=== PATIENT | male | born 1995 | race African-American/Black ===

== ENCOUNTER → 2020-09-17 | Outpatient (CLI) | payer OTHER ==
--- NOTE | 2020-09-17 14:27 | RADIOLOGY REPORT (SQ) ---
EXAM DESCRIPTION: L SPINE WHOLE IMAGES COMPLETED DATE/TIME: 09/17/2020 2:17 pm REASON FOR STUDY: LUMBAR RADICULOPATHY M54.16 RADICULOPATHY, LUMBAR REGION COMPARISON: None. NUMBER OF VIEWS: Five views including obliques. TECHNIQUE: AP, lateral, oblique, and sacral radiographic images acquired of the lumbar spine. LIMITATIONS: None. FINDINGS: MINERALIZATION: Normal. SEGMENTATION: Normal. No transitional anatomy. ALIGNMENT: Normal. VERTEBRAE: Maintained height. No fracture or worrisome bone lesion. DISCS: Preserved height. No significant osteophytes or end plate irregularity. POSTERIOR ELEMENTS: Pedicles and facets are intact. No pars defect or posterior arch defects. HARDWARE: None in the spine. PARASPINAL SOFT TISSUES: Normal. PELVIS: Intact as visualized. No fractures or worrisome bone lesions. SI joints intact. OTHER: No other significant finding. IMPRESSION: NORMAL 5 VIEW LUMBAR SPINE. TECHNICAL DOCUMENTATION: JOB ID: [id number] 2010 [employer]- All Rights Reserved Reading location - IP/workstation name: [email or web address]
== END ==
LOC: RAD 13:56
PROVIDERS: ATTEND Family Medicine
DX: M54.16 Radiculopathy, lumbar region (principal)
CPT/HCPCS: 72110

== ENCOUNTER 2020-10-19 17:53 | Emergency (ER) | payer OTHER ==
--- NOTE | 2020-10-19 18:26 | ER Document Report ---
ED Medical Screen (RME) - General Chief Complaint: Cough Stated Complaint: COUGH Time Seen by Provider: 10/19/20 18:25 Mode of Arrival: Ambulatory Information source: Patient Notes: 24-year-old male presented to ED with cough dry throat fever. Cough and lateral started yesterday fever started today. He states the sniffles started today. He states he does not know his been around anybody with Covid and he has not been tested. He will get flu strep Covid test as well as chest x-ray for his symptoms. We will treat with Tylenol at this time. I will get blood work blood cultures and give IV fluids. Patient is alert oriented respirations regular nonlabored speaking in full sentences. I have greeted and performed a rapid initial assessment of this patient. A comprehensive ED assessment and evaluation of the patient, analysis of test results and completion of medical decision making process will be conducted by an additional ED providers. Physical Exam - Vital signs Vitals: Temp Pulse Resp BP Pulse Ox 102.3 F H 85 20 112/57 L 97 10/18/20 18:02 10/18/20 18:02 10/18/20 18:02 10/18/20 18:02 10/18/20 18:02 Course - Vital Signs Vital signs: Temp Pulse Resp BP Pulse Ox 102.3 F H 85 20 112/57 L 97 10/18/20 18:02 10/18/20 18:02 10/18/20 18:02 10/18/20 18:02 10/18/20 18:02
[2020-10-19] MEDS ORDERED: IBUPROFEN 800 MG TABLET PO ONE (18:31)
--- NOTE | 2020-10-19 19:00 | RADIOLOGY REPORT (SQ) ---
EXAM DESCRIPTION: CHEST SINGLE VIEW IMAGES COMPLETED DATE/TIME: 10/19/2020 6:42 pm REASON FOR STUDY: cough fever COMPARISON: None. EXAM PARAMETERS: NUMBER OF VIEWS: One view. TECHNIQUE: Single frontal radiographic view of the chest acquired. RADIATION DOSE: NA LIMITATIONS: None. FINDINGS: LUNGS AND PLEURA: No opacities, masses or pneumothorax. No pleural effusion. MEDIASTINUM AND HILAR STRUCTURES: No masses. Contour normal. HEART AND VASCULAR STRUCTURES: Heart normal in size. Normal vasculature. BONES: No acute findings. HARDWARE: None in the chest. OTHER: No other significant finding. IMPRESSION: NO ACUTE RADIOGRAPHIC FINDING IN THE CHEST. TECHNICAL DOCUMENTATION: JOB ID: [id number] 2010 [employer]- All Rights Reserved Reading location - IP/workstation name: [email or web address]
[2020-10-19 21:01] LABS: ABSOLUTE LYMPHOCYTES (AUTO) 0.6 10^3/uL (0.5-4.7); ABSOLUTE MONOCYTES (AUTO) 0.6 10^3/uL (0.1-1.4); BASOPHILS % (AUTO) 0.3 % (0-2); EOSINOPHILS % (AUTO) 0.1 % (0-6); HEMATOCRIT 42.6 % (37.9-51.0); HEMOGLOBIN 14.3 g/dL (13.5-17.0); LYMPHOCYTES % (AUTO) 17.5 % (13-45); MEAN CORPUSCULAR HEMOGLOBIN 28.7 pg (27.0-33.4); MEAN CORPUSCULAR HGB CONC 33.7 g/dL (32.0-36.0); MEAN CORPUSCULAR VOLUME 85 fl (80-97); MONOCYTES % (AUTO) 19.8 % (3-13); PLATELET COUNT 196 10^3/uL (150-450); RED CELL DISTRIBUTION WIDTH 13.4 % (11.5-14.0); SEGMENTED NEUTROPHILS % (AUTO) 62.3 % (42-78); TOTAL CELLS COUNTED % (AUTO) 100 %; WHITE BLOOD COUNT 3.2 10^3/uL (4.0-10.5)
[2020-10-19 21:10] LABS: ALKALINE PHOSPHATASE 58 U/L (38-126); ANION GAP 7 (5-19); ASPARTATE AMINO TRANSFERASE 26 U/L (17-59); BLOOD UREA NITROGEN 11 mg/dL (7-20); CARBON DIOXIDE 25 mmol/L (22-30); CHLORIDE 102 mmol/L (98-107); GLUCOSE 79 mg/dL (75-110); POTASSIUM 3.6 mmol/L (3.6-5.0); TOTAL PROTEIN 7.4 g/dL (6.3-8.2)
[2020-10-19 21:18] LABS: A TYPE INFLUENZA AG NEGATIVE (NEGATIVE)
[2020-10-19 21:19] LABS: B INFLUENZA AG NEGATIVE (NEGATIVE)
--- NOTE | 2020-10-19 21:51 | ER Document Report ---
ED General - General Chief Complaint: Fever Stated Complaint: COUGH Time Seen by Provider: 10/19/20 18:25 Mode of Arrival: Ambulatory Notes: 24-year-old male no significant past medical history presents with 2 days of f ever and cough. Patient says he came to the emergency department because he had a fever of 106 degrees at home and his was concerned and wanted him to get checked out. Patient took Tylenol after that and the fever came down partially and then was given ibuprofen in the ED which is greatly improved his symptoms further. Patient endorses some nasal congestion, one loose nonbloody stool, some throat soreness and a dry cough. Patient denies any shortness of breath, neck pain or stiffness, headache, vomiting, abdominal pain, dizziness, weakness, syncope, myalgia, immunocompromise history, diabetes, HIV, recent travel, sick contacts, asthma, smoking/COPD history - Related Data Allergies/Adverse Reactions: No Known Allergies Allergy (Unverified 10/19/20 20:49) Past Medical History - General Information source: Patient - Social History Smoking Status: Former Smoker Family History: Reviewed & Not Pertinent Review of Systems - Review of Systems Notes: REVIEW OF SYSTEMS: CONSTITUTIONAL : + fever, chills, or sweats. EENT: + recent cold symptoms, + throat pain CARDIOVASCULAR: Denies chest pain, TAHIR RESPIRATORY: + cough, denies shortness of breath. GASTROINTESTINAL: Denies abdominal pain, nausea/vomiting. GENITOURINARY: Denies difficulty urinating, painful urination. MUSCULOSKELETAL: Denies neck pain, back pain. SKIN: Denies rash or skin lesions. HEMATOLOGIC : Denies easy bruising or bleeding. LYMPHATIC: Denies swollen, enlarged glands. NEUROLOGICAL: Denies headache, denies change in gait. PSYCHIATRIC: Denies anxiety or stress or depression. Physical Exam - Vital signs Vitals: Temp Pulse Resp BP Pulse Ox 102.3 F H 85 20 112/57 L 97 10/18/20 18:02 10/18/20 18:02 10/18/20 18:02 10/18/20 18:02 10/18/20 18:02 - Notes Notes: PHYSICAL EXAMINATION: GENERAL: Well-appearing, well-nourished young adult male sitting up in stretcher in no acute distress. HEAD: Atraumatic, normocephalic. EYES: Pupils equal round and appropriate constriction, sclera anicteric, conjunctiva are normal. ENT: nares patent, moist mucous membranes, very mild pharyngeal erythema, no tonsillar edema, no exudates, no tender anterior cervical lymphadenopathy NECK: Normal range of motion, supple without lymphadenopathy LUNGS: Breath sounds clear to auscultation bilaterally and equal. No wheezes rales or rhonchi. Normal respiratory rate and effort, speaking in full sentences, no tripoding HEART: Regular rate and rhythm without murmurs ABDOMEN: Soft, nontender, no guarding, no masses EXTREMITIES: Normal range of motion, no pitting or edema. No cyanosis. NEUROLOGICAL: Awake, alert, conversing appropriately, moves all extremities spontaneously. PSYCH: Normal mood, normal affect. SKIN: Warm, Dry, normal turgor, no rashes or lesions noted. Course - Re-evaluation Re-evalutation: 10/19/20 21:44 Very well-appearing patient with 2 days of fever cough mild pharyngitis without any shortness of breath, no respiratory distress on exam, normal vitals, normal work of breathing, no signs of hypoperfusion or dehydration, and no risk factors for complicated course. No pneumonia on chest x-ray. No signs of drug use. No signs of meningitis, bacteremia, and no risk factors for these. Fever has come down with antipyretics. Centor score of 1. No indication for flu swab as patient has no risk factors indicating Tamiflu and no signs of any flu complications if we were present. Likely COVID-19, however given no hypoxia, no increased work of breathing, no signs of dehydration no cardiomyopathy, there are no indications for admission at this time. I gave patient extensive follow- up instructions and return precautions which she demonstrated understanding of, says that he feels much better and that he is in agreement with plan and that he will come back if he feels worse. Ready for discharge. The patient was evaluated during the global COVID-19 pandemic and that diagnosis was suspected/considered upon their initial presentation. Their evaluation, treatment and testing was consistent with current guidelines for patients who present with complaints or symptoms that may be related to COVID-19. - Vital Signs Vital signs: Temp Pulse Resp BP Pulse Ox 102.3 F H 85 20 112/57 L 97 10/18/20 18:02 10/18/20 18:02 10/18/20 18:02 10/18/20 18:02 10/18/20 18:02 - Laboratory Results Result Diagrams: 10/19/20 20:33 10/19/20 20:33 Laboratory Results Interpreted: 10/19/20 10/19/20 20:33 20:33 WBC 3.2 L [place] % (Auto) 19.8 H Sodium 134.0 L Critical Laboratory Results Reviewed: No Critical Results - Radiology Results Critical Radiology Results Reviewed: No Critical Results Discharge - Discharge Clinical Impression: Cough Fever Qualifiers: Fever type: unspecified Qualified Code(s): R50.9 - Fever, unspecified Disposition: HOME, SELF-CARE Additional Instructions: Patient was provided with discharge information including: As a person under investigation for Covid 19, the [facility] of Health and Human Services, division of public health advises you to adhere to the following guidance until your test results are reported to you. If your test result is positive, you will receive additional information from your provider and your local health department at that time. Remain at home until you are cleared by the health provider or public health authorities. Keep a log of visitors to your home, notify any visitors to your home of your isolation status. If you plan to move to a new address or leave the [facility], notify the local health department in your County. Call your doctor or seek care if you have an urgent medical need. Before seeking medical care, call ahead to get instructions from the provider before arriving at the medical office clinic or hospital. Notify them that you are being tested for the virus that causes Covid 19 so that arrangements can be made, as necessary, to prevent transmission to others in the healthcare setting. Next, notify the local health department in your county. If a medical emergency arises and you need to call 911, inform the first responders that you are being tested for the virus that causes Covid 19. Next, notify the local health department in your county. Fever Fever is the body's reaction to infection. Fever can also occur with illnesses that create fever-producing substances in the body. By itself, fever is not harmful. It helps the body fight invading germs. We are more concerned with: (1) What's causing the fever? (2) How can we keep you more comfortable until the fever goes away? Early in an illness, symptoms are often so vague that a diagnosis can't be made. If the doctor hasn't identified a clear cause for your fever, you will probably develop new symptoms within the next two days. Contact the doctor if you develop severe worsening headache, rash, chest pain, cough with yellow or green sputum, difficulty breathing, abdominal pain, or other new symptoms. There is no reason to treat a fever if you're comfortable. If the fever is causing aches, headache, and fatigue, you can treat it with ibuprofen (Advil, Nuprin, etc) or acetaminophen (Tylenol). Follow the directions on the bottle. Get plenty of liquids (three quarts per day). Rest. Physical work or sports will raise the temperature higher and make you feel much worse. Dress lightly. If you're chilling, this means the temperature is trying to go higher. Take ibuprofen or acetaminophen. When you feel sweaty and "feverish" the temperature is coming down. If the fever doesn't go away within two days or if you become more ill, call the doctor or return at once for re-examination. Return to the emergency department immediately if you have any shortness of breath, dizziness, weakness, fainting, chest pain, rash, confusion, neck pain or stiffness, severe headache, new pain anywhere, or any new, worsening, or alarming symptoms. Follow-up with your primary doctor within 3 days remotely. Prescriptions: Acetaminophen 975 mg PO Q6HP PRN #30 capsule PRN Reason: Fever >101 Ibuprofen 600 mg PO Q6HP PRN #20 tablet PRN Reason: Fever >101 Referrals: LOPEZ DENG MD [COMMUNITY BASED STAFF] - Follow up as needed
[2020-10-19 22:29] VITALS: BP 110/72
== END 2020-10-19 22:27 | disposition home or self-care (01) ==
LOC: ER 17:53
DX: U07.1 COVID-19 (principal); R05 Cough; R50.9 Fever, unspecified
CPT/HCPCS: 99284; 36415; 87070; 87880; 85025; 87635; 80053; 87804; 71045; C9803